=== PATIENT | male | born 1965 | race Caucasian/White ===

== ENCOUNTER → 2016-12-16 | Outpatient (CLI) | payer OTHER | END | disposition home or self-care (01) | LOC: RAD.S 14:30 | DX: E29.1 Testicular hypofunction (principal); M81.0 Age-related osteoporosis without current pathological fracture; M85.80 Other specified disorders of bone density and structure, unspecified site ==

== ENCOUNTER 2016-12-23 07:46 | Emergency (ER) | payer OTHER ==
--- NOTE | 2016-12-23 14:22 | ER ---
ADMIT: 12/23/2016 RM/LOC: [facility] MR#: [id number] [id number] LIZA OKEEFE [address] [place] [address] Emergency Room Report SEX: M AGE: 51 : 1965 DATE: 12/23/2016 TIME: 0746 hours. Please refer to my T-sheet for complete H and P. Briefly, the patient comes in with some dizziness and nausea, it has been going on for 2 days. He was working last night but did not feel good enough to keep working. He does not feel like he can work tonight. No fevers, no chills, no headache. No other complaints. He has only vomited once. PHYSICAL EXAMINATION: VITAL SIGNS: Blood pressure 122/54, pulse 98, respirations 16, temp 96.4, and sat 97%. GENERAL: No acute distress. HEENT: Grossly normal. LUNGS: Clear. HEART: Regular. ABDOMEN: Soft. SKIN: No rash. NEURO: He is alert, oriented, no cerebellar findings. No focal findings. EMERGENCY DEPARTMENT COURSE: He wanted to drive home from here. I had a long discussion with him, he was ready for discharge. ASSESSMENT: 1. Nausea. 2. Dizzy. PLAN: Meclizine and Zofran. Return if worse. Follow up with Dr. Penny in 2- 3 days. Recheck. Seth Hodgson MD/ binta JOB #: [id number] CC: Seth Hodgson MD, Attending Physician Josue Penny MD, Family Physician
== END 2016-12-23 08:38 | disposition home or self-care (01) ==
LOC: ER 07:46
DX: R42 Dizziness and giddiness (principal)